=== PATIENT | female | born 1960 | race African-American/Black ===

== ENCOUNTER 2023-02-14 20:09 | Emergency (ER) | payer MEDICAID ==
[~2023-02-14] VITALS: Ht 157.5 cm; Wt 110.0 kg
[~2023-02-14 20:09] MED LIST: LORA10TA7 PO; OMEP20CA14 PO; tylenol
[2023-02-14 20:33] VITALS: BP 127/73; RESP 16; TEMP 98.7; O2SAT 98
[2023-02-14 20:36] VITALS: PULSE 74
== END 2023-02-14 21:00 | disposition home or self-care (01) ==
LOC: ER 20:09
DX: Z48.01 Encounter for change or removal of surgical wound dressing (principal); K21.9 Gastro-esophageal reflux disease without esophagitis; Z98.890 Other specified postprocedural states
CPT/HCPCS: 99281; Z7610